=== PATIENT | female | born 1970 | race Caucasian/White ===

== ENCOUNTER 2016-12-02 12:19 | Inpatient (IN) | payer OTHER ==
[~2016-12-02] VITALS: Ht 162.6 cm; Wt 68.0 kg
[2016-12-02 12:20] VITALS: BP 133/77
[2016-12-02 12:43] LABS: URINE BILIRUBIN NEGATIVE (Negative); URINE BLOOD NEGATIVE (Negative); URINE COLOR YELLOW; URINE GLUCOSE-RANDOM* NEGATIVE (Negative); URINE KETONES NEGATIVE (Negative); URINE NITRITE NEGATIVE (Negative); URINE PROTEIN (DIPSTICK) NEGATIVE (Negative); URINE SPECIFIC GRAVITY <= 1.005 (1.003-1.035); URINE UROBILINOGEN 0.2 E.U./dl (0.2-1.0)
[2016-12-02 12:47] LABS: ABSOLUTE NEUTROPHILS 1.8 thou/uL (1.4-8.2); BASOPHILS 1.1 % (0.0-2.0); EOSINOPHILS 1.3 % (0.0-3.0); HEMOGLOBIN 12.7 gm/dL (12.0-15.0); LYMPHOCYTES 39.3 % (24.0-44.0); MCH 31.6 pg (26.0-34.0); MCHC 34.3 g/dL (28.0-37.0); MCV 92.2 fL (80.0-100.0); MONOCYTES 11.5 % (1.0-8.0); PLATELET COUNT 171 thou/uL (150-400); POLYS 46.8 % (36.0-66.0); RBC 4.01 mil/uL (4.20-5.00); RDW 13.2 % (10.5-14.5); WBC 3.8 thou/uL (4.0-11.0)
[2016-12-02 12:48] LABS: MANUAL DIFF NO
[2016-12-02 12:58] LABS: CALCIUM 8.5 mg/dL (8.5-10.1); CREATININE 0.8 mg/dL (0.6-1.0); POTASSIUM 3.8 mmol/L (3.5-5.1)
[2016-12-02 13:04] LABS: ALBUMIN 3.7 g/dL (3.4-5.0); DIRECT BILIRUBIN 0.2 mg/dL (<0.1-0.3); TOTAL BILIRUBIN 0.4 mg/dL (<0.1-1.0)
[2016-12-02 16:22] VITALS: BP 125/72
[2016-12-02] MEDS ORDERED: LEVOTHYROXIN0.075 MG PO (17:05)
[2016-12-02] MEDS ORDERED: ALLEGRA ALLERGY60 MG PO (17:06)
[2016-12-02 20:00] VITALS: BP 108/61
[2016-12-03 04:00] VITALS: BP 87/55
[2016-12-03 06:00] VITALS: BP 110/59
[2016-12-03 06:20] LABS: HEMATOCRIT 36.7 % (37.0-47.0); HEMOGLOBIN 12.3 gm/dL (12.0-15.0); MCH 31.2 pg (26.0-34.0); MCHC 33.7 g/dL (28.0-37.0); MCV 92.6 fL (80.0-100.0); RBC 3.96 mil/uL (4.20-5.00); RDW 13.1 % (10.5-14.5); WBC 3.6 thou/uL (4.0-11.0)
[2016-12-03 06:46] LABS: ALBUMIN 3.2 g/dL (3.4-5.0); CALCIUM 7.6 mg/dL (8.5-10.1); CREATININE 0.8 mg/dL (0.6-1.0); POTASSIUM 4.3 mmol/L (3.5-5.1); TOTAL BILIRUBIN 0.4 mg/dL (<0.1-1.0)
[2016-12-03 08:00] VITALS: BP 107/66
[2016-12-03 16:00] VITALS: BP 104/67
[2016-12-03 20:15] VITALS: BP 122/72
[2016-12-04 04:59] VITALS: BP 112/54
[2016-12-04 09:20] VITALS: BP 115/76
[2016-12-04 12:37] LABS: ALBUMIN 3.4 g/dL (3.4-5.0); CALCIUM 7.9 mg/dL (8.5-10.1); CREATININE 0.8 mg/dL (0.6-1.0); DIRECT BILIRUBIN 0.3 mg/dL (<0.1-0.3); POTASSIUM 4.1 mmol/L (3.5-5.1); TOTAL BILIRUBIN 0.9 mg/dL (<0.1-1.0); TOTAL PROTEIN 6.6 g/dL (6.4-8.2)
[2016-12-04 16:20] VITALS: BP 120/59
[2016-12-05 00:45] VITALS: BP 96/49
[2016-12-05 05:00] VITALS: BP 118/65
[2016-12-05 06:19] LABS: ABSOLUTE NEUTROPHILS 2.1 thou/uL (1.4-8.2); BASOPHILS 0.9 % (0.0-2.0); EOSINOPHILS 4.9 % (0.0-3.0); HEMATOCRIT 34.7 % (37.0-47.0); HEMOGLOBIN 11.9 gm/dL (12.0-15.0); MCH 31.8 pg (26.0-34.0); MCHC 34.1 g/dL (28.0-37.0); MCV 93.1 fL (80.0-100.0); MONOCYTES 9.9 % (1.0-8.0); PLATELET COUNT 157 thou/uL (150-400); POLYS 55.3 % (36.0-66.0); RBC 3.73 mil/uL (4.20-5.00); RDW 13.3 % (10.5-14.5); WBC 3.7 thou/uL (4.0-11.0)
[2016-12-05 06:22] LABS: MANUAL DIFF NO
[2016-12-05 06:33] LABS: CALCIUM 8.2 mg/dL (8.5-10.1); CREATININE 0.7 mg/dL (0.6-1.0); POTASSIUM 3.9 mmol/L (3.5-5.1)
[2016-12-05 09:20] VITALS: BP 114/66
[2016-12-05 15:45] VITALS: BP 121/61
[2016-12-05 20:05] VITALS: BP 124/70
[2016-12-06 05:01] VITALS: BP 110/60
[2016-12-06 06:27] LABS: HEMATOCRIT 34.6 % (37.0-47.0); HEMOGLOBIN 11.7 gm/dL (12.0-15.0); MCH 31.6 pg (26.0-34.0); MCHC 33.8 g/dL (28.0-37.0); MCV 93.5 fL (80.0-100.0); RBC 3.7 mil/uL (4.20-5.00); WBC 3.4 thou/uL (4.0-11.0)
[2016-12-06 06:34] LABS: ALKALINE PHOSPHATASE 93 U/L (46-116); ANION GAP 6 mmol/L (7-16); BUN 8 mg/dL (7-18); CALCIUM 8.3 mg/dL (8.5-10.1); CHLORIDE 107 mmol/L (98-107); CO2 29 mmol/L (21-32); CREATININE 0.7 mg/dL (0.6-1.0); DIRECT BILIRUBIN < 0.1 mg/dL (<0.1-0.3); GLUCOSE 102 mg/dL (74-106); POTASSIUM 3.7 mmol/L (3.5-5.1); SGOT 99 U/L (15-37); SGPT 210 U/L (30-65); SODIUM 142 mmol/L (136-145); TOTAL BILIRUBIN 0.4 mg/dL (<0.1-1.0); TRIGLYCERIDE 70 mg/dL (<150)
[2016-12-06] MEDS ORDERED: OXYCODONE HCL 55 MG PO (06:55)
[2016-12-06] MEDS ORDERED: FOLIC ACID1 MG PO (06:55)
[2016-12-06] MEDS ORDERED: VITAMIN B-1100 M2 PO (06:55)
[2016-12-06] MEDS ORDERED: NEXIUM40 MG PO (06:55)
[2016-12-06 07:22] VITALS: BP 122/76
[2016-12-06 08:38] VITALS: BP 122/76
== END 2016-12-06 10:30 | disposition home or self-care (01) | DRG 439 ==
LOC: ER 12:19 → EROBS 13:50 → 4E 13:50
PROVIDERS: Family Medicine; Hospitalist; Nurse Practitioner
DX: K85.90 Acute pancreatitis without necrosis or infection, unspecified (principal); E44.0 Moderate protein-calorie malnutrition; F10.10 Alcohol abuse, uncomplicated; E03.9 Hypothyroidism, unspecified; F32.9 Major depressive disorder, single episode, unspecified; F17.210 Nicotine dependence, cigarettes, uncomplicated; Z90.49 Acquired absence of other specified parts of digestive tract; Z87.11 Personal history of peptic ulcer disease; Z90.710 Acquired absence of both cervix and uterus
CPT/HCPCS: 10084